=== PATIENT | female | born 1980 | race American Indian/Alaskan Native ===

== ENCOUNTER 2017-05-08 06:29 | Day surgery (SDC) | payer MEDICAID ==
[2017-05-08] MEDS ORDERED: DIPRIVAN 10 MG/ML IV ONE ×2 (07:23→07:24)
[2017-05-08] MEDS ORDERED: NACL 0.9% 1000 ML 1,000 ML IV SCH (09:00)
[2017-05-08] MEDS ORDERED: XYLOCAINE MPF 2% ONE (09:00)
--- NOTE | 2017-05-08 09:02 | Anesthesia Consultation ---
Anesthesia Consult and Med Hx Date of service: 05/08/17 - Airway Anesthetic Teeth Evaluation: Good ROM Head & Neck: Adequate Mental/Hyoid Distance: Adequate Mallampati Class: Class II Intubation Access Assessment: Probably Good - Pulmonary Exam CTA: Yes - Cardiac Exam Cardiac Exam: RRR - Pre-Operative Health Status ASA Pre-Surgery Classification: ASA2 Proposed Anesthetic Plan: MAC - Other Systems Hx Obesity: Yes
--- NOTE | 2017-05-08 09:02 | Anesthesia Day of Surgery ---
Anesthesia Day of Surgery - Day of Surgery Patient Examined: Yes Patient H&P Reviewed: Yes Patient is NPO: Yes
--- NOTE | 2017-05-08 11:12 | Discharge Summary ---
Providers - Providers Date of discharge: 05/08/17 Attending physician: ROMY WOODSON Hospitalization Condition: Good Procedures: egd Disposition: DC-01 TO HOME OR SELFCARE Core Measure Documentation - Palliative Care Palliative Care/ Comfort Measures: Not Applicable - Core Measures Any of the following diagnoses?: none Exam - Physical Exam Narrative exam: unchanged from pre-op - Constitutional Vitals: Temp Pulse Resp BP Pulse Ox 98.5 F 72 48 H 103/70 100 05/08/17 10:42 05/08/17 10:57 05/08/17 10:57 05/08/17 10:57 05/08/17 10:57 Plan Activity: no restrictions Weight Bearing Status: Full Weight Bearing Diet: regular Follow up with: [facility] [Other] - 7 Days
[2017-05-08 11:14] VITALS: BP 114/88
--- NOTE | 2017-05-08 11:16 | Operative Report ---
Operative Report Operative Report: OPERATIVE REPORT - EGD DATE 05/08/17 SURGERY: Upper endoscopy. SURGEON: Jelly Hobbs M.D. PRE OP DX: dyspepsia POST OP DX: hiatal hernia TYPE OF ANESTHESIA: MAC. ESTIMATED BLOOD LOSS: None. COMPLICATIONS: None. SPECIMENS REMOVED: None. FINDINGS: 1. Small hiatal hernia. 2. Otherwise, normal esophagus, stomach and first portion of duodenum. INDICATIONS:INDICATION FOR PROCEDURE: Patient is a 36-year-old female with a long history of morbid obesity. She is planned to have a weight loss procedure and is here for preoperative planning EGD. We are looking for any pathology that may inhibit or delay her upcoming baritric surgery. PROCEDURE DETAILS: After consent was reviewed, patient was taken back to the operating room where patient was placed in the left lateral decubitus position and a bite block was placed in the mouth. After a time-out was called, MAC anesthesia was initiated. I then passed the endoscope into her oropharynx, into her esophagus, visualized the entire esophagus, which was all within normal limits. I then visualized the stomach and the first portion of the duodenum and there were no abnormalities I could clearly visualize. I then retroflexed the scope in the stomach and visualized the hiatus and I could see a small hiatal hernia. I then desufflated the stomach and removed the endoscope. Patient tolerated procedure well and was transferred to recovery room in good and stable condition.
--- NOTE | 2017-05-08 11:19 | Post Anesthesia Evaluation ---
- Post Anesthesia Evaluation Patient Participated: Yes Airway Patent: Yes Stable Respiratory Function: Yes Nausea/Vomiting: No Temp > 96.8F: Yes Pain Manageable: Yes Adequeate Hydration: Yes Anesthesia Complications: No Block Receding Appropriately: Not Applicable Patient on Ventilator: No
== END 2017-05-08 06:30 | disposition home or self-care (01) ==
LOC: GIO 06:29
PROVIDERS: ATTEND Surgery
DX: K44.9 Diaphragmatic hernia without obstruction or gangrene (principal); R10.13 Epigastric pain; E66.01 Morbid (severe) obesity due to excess calories; D50.9 Iron deficiency anemia, unspecified
CPT/HCPCS: 43235; J2704; J7030

== ENCOUNTER 2017-05-15 06:06 | Inpatient (IN) | payer MEDICAID ==
[~2017-05-15 06:06] MED LIST: LACTATED RINGERS 1,000 ML IV SCH; PEPCID IV NR; TRANSDERM-SCOP TD NR; VERSED IV NR
[2017-05-15] MEDS ORDERED: NACL BACTERIOSTATIC INFILTRATI ONE (06:52)
[2017-05-15] MEDS ORDERED: LOVENOX SUB-Q NR (07:00)
[2017-05-15] MEDS ORDERED: ANCEF/STERILE WATER 2 GM/20 ML IV NR (07:00)
[2017-05-15] MEDS ORDERED: FLAGYL 500 MG/100 ML 500 MG/100 ML BAG IV NR (07:00)
[2017-05-15 07:05] LABS: Bilirubin,Urine NEG (Negative); Blood,Urine NEG (Negative); Ketones,Urine 20 mg/dL (Negative); Leukocyte Esterase,Urine NEG (Negative); Mucus,Urine FEW /HPF; Nitrite,Urine NEG (Negative); Protein,Urine <15 mg/dL mg/dL (Negative); Urobilinogen,Urine < 2.0 mg/dL (<2.0)
--- NOTE | 2017-05-15 07:12 | Anesthesia Consultation ---
Anesthesia Consult and Med Hx Date of service: 05/15/17 - Airway Anesthetic Teeth Evaluation: Good ROM Head & Neck: Adequate Mental/Hyoid Distance: Adequate Mallampati Class: Class I Intubation Access Assessment: Good - Pulmonary Exam CTA: Yes - Cardiac Exam Cardiac Exam: RRR - Pre-Operative Health Status ASA Pre-Surgery Classification: ASA3 Proposed Anesthetic Plan: General - Pulmonary Hx Smoking: No Hx Sleep Apnea: Yes (mild, not on cpap) - Hematic Hx Anemia: No - Other Systems Hx Cancer: No Hx Obesity: Yes (morbid)
--- NOTE | 2017-05-15 07:12 | Anesthesia Day of Surgery ---
Anesthesia Day of Surgery - Day of Surgery Patient Examined: Yes Patient H&P Reviewed: Yes Patient is NPO: Yes
[2017-05-15] MEDS ORDERED: MARCAINE-EPI/PF 0.5%-1:200,000 INFILTRATI ONE ×2 (07:13→08:15)
[2017-05-15] MEDS ORDERED: XYLOCAINE 1% 20 mL ONE (07:14)
[2017-05-15] MEDS ORDERED: DIPRIVAN 10 MG/ML IV ONE (07:19)
[2017-05-15] MEDS ORDERED: SUBLIMAZE ONE (07:20)
[2017-05-15] MEDS ORDERED: XYLOCAINE MPF 2% ONE (07:20)
[2017-05-15] MEDS ORDERED: ZEMURON IV ONE ×2 (07:20→08:10)
[2017-05-15] MEDS ORDERED: PERCOCET 5/325 PO PRN (08:00)
[2017-05-15] MEDS ORDERED: ZOFRAN IV PRN (08:00)
[2017-05-15] MEDS ORDERED: NACL 0.9% IR ONE ×2 (08:14)
[2017-05-15] MEDS ORDERED: XYLOCAINE 1% 20 mL INFILTRATI ONE (08:14)
[2017-05-15] MEDS ORDERED: DILAUDID ONE ×2 (08:34→08:59)
[2017-05-15] MEDS ORDERED: LACTATED RINGERS 1,000 ML ONE (08:38)
[2017-05-15] MEDS ORDERED: BREVIBLOC IV ONE (08:38)
[2017-05-15] MEDS ORDERED: ZOFRAN ONE (08:59)
[2017-05-15] MEDS ORDERED: ROBINUL ONE (08:59)
[2017-05-15] MEDS ORDERED: NEOSTIGMINE ONE (08:59)
[2017-05-15] MEDS ORDERED: TORADOL ONE (09:18)
[2017-05-15] MEDS: DILAUDID IV PRN ×5 (10:14→22:16)
[2017-05-15] MEDS ORDERED: APRESOLINE IV PRN (10:16)
[2017-05-15] MEDS ORDERED: NORCO PO PRN (10:16)
--- NOTE | 2017-05-15 10:22 | Operative Report ---
Operative Report Operative Report: Operative Report DATE OF PROCEDURE: 05/15/17 PREOPERATIVE DIAGNOSES: Morbid obesity, hiatal hernia, cholelithiasis POSTOPERATIVE DIAGNOSES: 1.same as pre-op SURGEON: Jelly Hobbs M.D. TELEPHONE TRIAGE NURSE: Elvis Espinosa D.O PROCEDURE: 1. laparoscopic sleeve gastrectomy 2. laparoscopic hiatal hernia repair 3. Laparoscopic cholecystectomy ANESTHESIA: General. ESTIMATED BLOOD LOSS: <5 mL. COMPLICATIONS: None. SPECIMEN: Partial gastrectomy, gall bladder FINDINGS: 1. hiatal hernia 2. Gall bladder with stones INDICATION FOR PROCEDURE: Patient is a 36year-old *male with a long history of morbid obesity. She has tried multiple efforts at weight loss without long-term success. She is here today for sleeve gastrectomy. She also reports pain after eating fatty meals. She also symptomatic cholelithiasis PROCEDURE IN DETAIL: After consent was reviewed, patient was taken back to the operating room, where patient was placed supine on the bed with both arms out. The patient's legs were doubly strapped to the bed. Patient had a foot board in place. Patient had a body warmer placed by anesthesia. Patient was then prepped and draped in normal sterile surgical fashion. After a time-out was called, I made a stab incision in the umbilicus and placed a Veress needle through this incision and insufflated the abdomen to 18 mmHg pressure. I then counted down a handsbreadth below the xiphoid process in the midline and slightly left lateral injected local anesthetic and made about 1.5 cm transverse incision. I then used a 12-mm Optiview trocar to enter into the abdomen. I then placed a 45- degree scope through this port and inspected the abdomen. There was no injury on entry of the abdomen. I then placed two 5-mm ports in the right upper quadrant, one along the anterior axillary line and 1 subxiphoid below the costovertebral angle. I then placed a 15-mm port about a handsbreadth left lateral and inferior to my anterior axillary port. I then placed left upper quadrant port along the anterior axillary line in a similar fashion. I then placed the liver retractor through the subxiphoid port and placed the patient in full reverse Trendelenburg. The right and left crura were skeletonized accentuating a small hiatal hernia. An anterior cruraplasty was perfromed with a figure-of-8 stitch using surgidac suture to reapproximate the crura. I then identified the pylorus and then counted off 6cm from the pylorus. I then used a LigaSure cutting device to enter into the lesser sac. At that point and then I took down the short gastrics all the way up to the left shiva. Then I had anesthesia pass down a 36-Azeri bougie along the lesser curvature of the stomach. I made sure everything else was out of the abdomen except the bougie. I then created my gastric sleeve using a 60-mm laparoscopic stapler. . The sleeve looked good without any twisting or torsion. I then had anesthesia to remove the bougie. Hemostasis was obtained along the staple line. I then used Tiseel along the entirety of the staple line and some on the liver. I then removed liver grasper and took it off the field. Next, the gall bladder was retracted and the cystic duct and cystic artery were dissected to obtain the critical view. Once the critical view was obtained the cystic duct was clipped 2x at the base and 1 above prior to transecting. Next the cystic artery was clipped 2 times and transected. The gall bladder was removed via electrocautry from the liver bed. No bleeding on the liver bed was identified. The gallbladder was removed fro the abdomen after placing in the bag. I then removed the stomach through the 15-mm port. I then closed that fascia with a #1 PDS in a [id number] fashion using a Russ-López. I then desufflated the abdomen and then removed all port sites. I then closed the incisions with 4-0 Monocryl in subcuticular fashion. I then dressed the wounds with Dermabond. Patient tolerated the procedure well and was transferred to recovery room in good and stable condition.
[2017-05-15] MEDS: MORPHINE IV PRN ×2 (13:48→20:02)
[2017-05-15] MEDS: MYLICON PO PRN ×2 (13:49→19:30)
[2017-05-15] MEDS: REGLAN IV PRN (15:24)
[2017-05-15] MEDS: LACTATED RINGERS 1,000 ML IV SCH (15:31)
[2017-05-15] MEDS: TORADOL IV SCH ×2 (16:52→22:15)
[2017-05-15] MEDS: ANCEF/NS 1 GM/50 ML 1 GM/50 ML BAG IV SCH (16:52)
[2017-05-15] MEDS: FLAGYL 500 MG/100 ML 500 MG/100 ML BAG IV SCH ×2 (17:04→22:21)
[2017-05-15] MEDS: ZOFRAN IV PRN (20:18)
[2017-05-16] MEDS: ANCEF/NS 1 GM/50 ML 1 GM/50 ML BAG IV SCH (00:11)
[2017-05-16] MEDS: LACTATED RINGERS 1,000 ML IV SCH ×4 (00:25→17:53)
[2017-05-16] MEDS: REGLAN IV PRN ×2 (00:54→06:49)
[2017-05-16] MEDS: MYLICON PO PRN ×2 (03:23→09:13)
[2017-05-16] MEDS: TORADOL IV SCH ×3 (03:23→19:46)
[2017-05-16] MEDS: ZOFRAN IV PRN (03:24)
[2017-05-16 03:30] LABS: Basophils % (Auto) 0.1 % (0.0-1.8); Hematocrit 43.6 % (30.3-42.9); Mean Corpuscular HGB Conc 35 % (30-34); Mean Corpuscular Hemoglobin 32 pg (28-32); Mean Corpuscular Volume 93 fl (79-97); Platelet Count 298 K/mm3 (140-440); Red Blood Count 4.68 M/mm3 (3.65-5.03); Red Cell Distribution Width 13.1 % (13.2-15.2); White Blood Count 11.8 K/mm3 (4.5-11.0)
[2017-05-16 04:23] LABS: Alanine Aminotransferase 21 units/L (7-56); Albumin/Globulin Ratio 1.3 %; Alkaline Phosphatase 77 units/L (35-129); Anion Gap 20 mmol/L; Blood Urea Nitrogen 6 mg/dL (7-17); Calcium 8.9 mg/dL (8.4-10.2); Carbon Dioxide 22 mmol/L (22-30); Chloride 95.4 mmol/L (98-107); Glucose 94 mg/dL (65-100); Potassium 3.8 mmol/L (3.6-5.0); Sodium 134 mmol/L (137-145); Total Protein 7.1 g/dL (6.3-8.2)
[2017-05-16] MEDS: FLAGYL 500 MG/100 ML 500 MG/100 ML BAG IV SCH (06:39)
[2017-05-16] MEDS: DILAUDID IV PRN ×2 (06:49→19:58)
[2017-05-16] MEDS: PHENERGAN PR SCH ×2 (11:31→17:51)
[2017-05-16] MEDS: LOVENOX SUB-Q SCH (11:31)
[2017-05-16] MEDS: ZOFRAN IV SCH ×3 (11:32→19:48)
[2017-05-16] MEDS: CARAFATE PO SCH ×2 (11:48→17:51)
[2017-05-16] MEDS: PROTONIX IV SCH (12:00)
--- NOTE | 2017-05-16 13:43 | Progress Note ---
Assessment and Plan A: POD #1 s/p lap gastric sleeve, and lap dre with persistent nausea and vomiting. stable, afebrile, no clinical signs of leak or bleeding P: will continue IV reglan, zofran, phenergan, pending improvement will plan to d/c tomorrow Subjective Date of service: 05/16/17 Patient Reports: Positive: nausea (n/v improved but not resolved since started IV antiemtics), vomiting Objective Vital Signs - 12hr 05/16/17 05/16/17 05/16/17 03:23 03:53 04:08 Temperature 98.8 F Pulse Rate 89 Respiratory 20 20 20 Rate Blood Pressure 140/89 O2 Sat by Pulse 98 Oximetry 05/16/17 05/16/17 05/16/17 04:09 06:49 07:19 Temperature Pulse Rate 86 Respiratory 20 20 Rate Blood Pressure O2 Sat by Pulse 98 Oximetry 05/16/17 05/16/17 05/16/17 07:52 07:55 11:53 Temperature 98.2 F 99.4 F Pulse Rate 75 97 H Respiratory 20 18 Rate Blood Pressure 117/76 151/103 O2 Sat by Pulse 99 97 99 Oximetry - General physical appearance well developed, well nourished, no distress - Respiratory normal expansion, normal respiratory effort - Abdomen soft, other (approiatley tender to palpation, incisons c/d/i) - Labs 05/16/17 02:36 05/16/17 02:36 Diabetes panel 05/16/17 Range/Units 02:36 Sodium 134 L (137-145) mmol/L Potassium 3.8 (3.6-5.0) mmol/L Chloride 95.4 L (98-107) mmol/L Carbon Dioxide 22 (22-30) mmol/L BUN 6 L (7-17) mg/dL Creatinine 0.4 L (0.7-1.2) mg/dL Glucose 94 (65-100) mg/dL Calcium 8.9 (8.4-10.2) mg/dL AST 24 (5-40) units/L ALT 21 (7-56) units/L Alkaline Phosphatase 77 (35-129) units/L Total Protein 7.1 (6.3-8.2) g/dL Albumin 4.0 (3.9-5) g/dL Calcium panel 05/16/17 Range/Units 02:36 Calcium 8.9 (8.4-10.2) mg/dL Albumin 4.0 (3.9-5) g/dL Pituitary panel 05/16/17 Range/Units 02:36 Sodium 134 L (137-145) mmol/L Potassium 3.8 (3.6-5.0) mmol/L Chloride 95.4 L (98-107) mmol/L Carbon Dioxide 22 (22-30) mmol/L BUN 6 L (7-17) mg/dL Creatinine 0.4 L (0.7-1.2) mg/dL Glucose 94 (65-100) mg/dL Calcium 8.9 (8.4-10.2) mg/dL Adrenal panel 05/16/17 Range/Units 02:36 Sodium 134 L (137-145) mmol/L Potassium 3.8 (3.6-5.0) mmol/L Chloride 95.4 L (98-107) mmol/L Carbon Dioxide 22 (22-30) mmol/L BUN 6 L (7-17) mg/dL Creatinine 0.4 L (0.7-1.2) mg/dL Glucose 94 (65-100) mg/dL Calcium 8.9 (8.4-10.2) mg/dL Total Bilirubin 0.50 (0.1-1.2) mg/dL AST 24 (5-40) units/L ALT 21 (7-56) units/L Alkaline Phosphatase 77 (35-129) units/L Total Protein 7.1 (6.3-8.2) g/dL Albumin 4.0 (3.9-5) g/dL
[2017-05-16] MEDS: REGLAN IV SCH ×2 (17:48→19:00)
[2017-05-17] MEDS: TORADOL IV SCH ×4 (01:26→09:43)
[2017-05-17] MEDS: DILAUDID IV PRN ×2 (01:35→07:53)
[2017-05-17] MEDS: ZOFRAN IV SCH ×4 (01:35→11:30)
[2017-05-17] MEDS: CARAFATE PO SCH ×2 (01:35→12:00)
[2017-05-17] MEDS: LACTATED RINGERS 1,000 ML IV SCH ×2 (01:42→07:52)
[2017-05-17] MEDS: PHENERGAN PR SCH ×2 (01:46→11:00)
[2017-05-17] MEDS: REGLAN IV SCH ×4 (01:47→13:00)
[2017-05-17] MEDS: PROTONIX IV SCH ×2 (07:52→10:16)
[2017-05-17] MEDS: LOVENOX SUB-Q SCH ×2 (07:52→10:16)
[2017-05-17 08:34] VITALS: BP 127/82
--- NOTE | 2017-05-17 11:07 | Progress Note ---
Assessment and Plan A: POD #2 s/p lap gastric sleeve, and lap dre with persistent nausea and vomiting. stable, afebrile, no clinical signs of leak or bleeding P: reported improvement overnight requiring less IV medication. Advise patient to continue post-op plan as outlined in the informational pamphlet received in office. Plan to D/C today. will dc with scott Subjective Date of service: 05/17/17 (No acute events overnight) Patient Reports: Positive: no new complaints, feels better (with improvement in nausea and vomiting requiring less medication overnight), tolerating liquids well, voiding w/o difficulty, afebrile Narrative: Feeling much better. Nausea improved, no longer vomiting. Pt feels much better. Objective Vital Signs - 12hr 05/16/17 05/17/17 05/17/17 23:23 04:21 07:44 Temperature 98.3 F 98.7 F Pulse Rate 64 87 Respiratory 18 16 18 Rate Blood Pressure 113/78 119/73 Blood Pressure [Left] O2 Sat by Pulse 99 96 Oximetry 05/17/17 07:45 Temperature 98.5 F Pulse Rate 71 Respiratory 18 Rate Blood Pressure Blood Pressure 127/82 [Left] O2 Sat by Pulse 98 Oximetry - General physical appearance no distress, no pain, obese - Eyes PERRL, normal occular movement - ENT normal mucosa - Neck trachea midline, no venous distension - Respiratory normal expansion, normal respiratory effort, clear to auscultation - Abdomen soft, bowel sounds hypoactive, surgical scars (clean dry and intact), other ( incisional tenderness. wounds cdi) Hernia: none - Genitourinary normal external genitalia - Integumentary no rash, no abnormal pigmentation - Neurologic normal coordination, normal sensation - Musculoskeletal normal gait, normal posture, other (ambulation witnessed) - Psychiatric oriented to time, oriented to person, oriented to place, speech is normal, memory intact - Labs 05/16/17 02:36 05/16/17 02:36
--- NOTE | 2017-05-17 11:46 | Discharge Summary ---
Providers - Providers Date of Admission: 05/15/17 06:06 Attending physician: ROMY WOODSON Primary care physician: PRODUCTION SPECIALIST Hospitalization Condition: Good Procedures: laparoscopic sleeve gastrectomy, and cholecystectomy Hospital course: 36 y.o. F admitted for lap sleeve gastrectomy and cholecystectomy. On POD 1 she had persistent nausea and vomiting. Anti nausea meds where added to her medications and she improved overnight. On POD 2, she was able to tolerated liquids with minimal nausea. She denies vomiting overnight. She is ambulating and pain is controlled. Disposition: DC-01 TO HOME OR SELFCARE Core Measure Documentation - Palliative Care Palliative Care/ Comfort Measures: Not Applicable - Core Measures Any of the following diagnoses?: none Exam - Physical Exam Narrative exam: VSS Gen: A+Ox3 Resp: equal rise and fall of chest Abd: soft, obese, tender at incision sites. no rebound no guarding. incisions cdi - Constitutional Vitals: Temp Pulse Resp BP Pulse Ox 98.5 F 71 18 127/82 98 05/17/17 07:45 05/17/17 07:45 05/17/17 07:45 05/17/17 07:45 05/17/17 07:45 Plan Activity: other (no lifting >15lbs for 6weeks) Diet: clear liquids (sugar free ) Wound: other (December shower Friday) Additional Instructions: Wound care appt: Friday Follow up with: PRIMARY MD KESHAWN [Primary Care Provider] - 7 Days
[2017-05-18] MEDS ORDERED: PROTONIX PO SCH (10:00)
== END 2017-05-17 14:03 | disposition home or self-care (01) | DRG 327 ==
LOC: 3A 06:06 → 3B-SURG 11:05
PROVIDERS: ADMIT Surgery; ATTEND Surgery
PROC: 0DB64Z3 Excision of Stomach, Percutaneous Endoscopic Approach, Vertical (ICD-10-PCS; principal; 2017-05-15)
PROC: 0BQS4ZZ (ICD-10-PCS; 2017-05-15)
PROC: 0BQR4ZZ (ICD-10-PCS; 2017-05-15)
PROC: 0FT44ZZ Resection of Gallbladder, Percutaneous Endoscopic Approach (ICD-10-PCS; 2017-05-15)
DX: K44.9 Diaphragmatic hernia without obstruction or gangrene (principal); Z68.41 Body mass index [BMI] 40.0-44.9, adult; K80.20 Calculus of gallbladder without cholecystitis without obstruction; E66.01 Morbid (severe) obesity due to excess calories; D50.9 Iron deficiency anemia, unspecified; K30 Functional dyspepsia; Z83.6 Family history of other diseases of the respiratory system; Z83.3 Family history of diabetes mellitus; Z82.61 Family history of arthritis; Z86.711 Personal history of pulmonary embolism
CPT/HCPCS: 36415; 80053; 81001; 81025; 85025; 88304; 88307; A4217; C9113; C9250; J0360; J0690; J1170; J1650; J1885; J2250; J2270; J2405; J2704; J2710; J2765; J3010; J7120